=== PATIENT | male | born 1945 | race Caucasian/White ===

== ENCOUNTER 2021-09-15 11:02 | Emergency (ER) | payer OTHER | END 2021-09-15 12:16 | LOC: CSHERS 11:02 | DX: S70.01XA Contusion of right hip, initial encounter (principal); S80.01XA Contusion of right knee, initial encounter; D64.9 Anemia, unspecified; E03.9 Hypothyroidism, unspecified; I10 Essential (primary) hypertension; W19.XXXA Unspecified fall, initial encounter | CPT/HCPCS: 72170 ==